=== PATIENT | male | born 1965 | race Two or more races ===

== ENCOUNTER 2017-04-17 16:47 | Day surgery (SDC) | payer OTHER ==
[2017-04-17] MEDS ORDERED: Lidocaine 1% 20 ML MDV INJECT ONE (17:18)
[2017-04-17] MEDS ORDERED: Lidocaine 1% 50 ML MDV INJECT ONE (17:23)
--- NOTE | 2017-04-17 17:23 | EDM.PDOC ---
ED HPI GENERAL MEDICAL PROBLEM - General Chief Complaint: Upper Extremity Injury/Pain Stated Complaint: LACERATION L 2 FINGERS Time Seen by Provider: 04/17/17 17:10 Source of Information: Reports: Patient History Limitations: Reports: No Limitations - History of Present Illness INITIAL COMMENTS - FREE TEXT/NARRATIVE: Patient is a 51-year-old male presents to the ED complaining of crush injury to the left index and thumb. 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 During this process one of the palms fell on the affected fingers. Bleeding is controlled. He has slight numbness to the left index finger. Minimal pain to the left thumb. No pain to the remainder fingers, hand, wrist, forearm, elbow. Tetanus status is questionable up to date. Patient has no additional past medical history and is currently taking no medications. Left 1-Thumb Pain Score (Numeric/FACES): 3 - Related Data Allergies Allergy/AdvReac Type Severity Reaction Status Date / Time No Known Allergies Allergy Verified 04/17/17 17:05 Home Meds: Home Meds . [No Known Home Meds] 04/17/17 [History] Review of Systems - Review of Systems Review Of Systems: ROS reveals no pertinent complaints other than HPI. ED EXAM, GENERAL - Physical Exam Exam: See Below Exam Limited By: No Limitations General Appearance: Alert, WD/WN, No Apparent Distress Ears: Hearing Grossly Normal Nose: Normal Inspection Throat/Mouth: Normal Voice, No Airway Compromise Neck: Normal Inspection, Supple Respiratory/Chest: No Respiratory Distress, No Accessory Muscle Use Cardiovascular: Normal Peripheral Pulses, Regular Rate, Rhythm Peripheral Pulses: 2+: Radial (L) Extremities: Other (Left index finger: Extensive crush injury to the medial lateral aspect of the left index finger. Full extension and flexion of the finger noted. Mild numbness present. Large laceration that starts at the proximal IP joint and wraps around the distal tip towards the other side of the IP joint. Bleeding controlled. Left thumb: Crush injury to the medial aspect of the distal phalanx. Minimal bleeding. Pain present. No sensory motor deficits noted. No pain noted to the remainder of the fingers and wrist forearm elbow.) Neurological: Alert, Oriented, Normal Cognition, No Motor/Sensory Deficits Psychiatric: Normal Affect, Normal Mood Skin Exam: Warm, Dry Course - Vital Signs Last Recorded V/S: Last Vital Signs Temp 97.7 F 04/17/17 17:06 Pulse 64 04/17/17 17:06 Resp 14 04/17/17 17:06 BP 162/104 H 04/17/17 17:06 Pulse Ox 98 04/17/17 17:06 - Orders/Labs/Meds Orders: Active Orders 24 hr Category Date Time Status Patient Status [ADT] Routine ADT 04/17/17 18:50 Active Peripheral IV Care [RC] . DIRECTED Care 04/17/17 18:23 Active NPO Now [Nothing per Oral Now Diet] [DIET] Diet 04/17/17 Breakfast Active Fingers Second Digit Lt F1 [CR] Stat Exams 04/17/17 17:17 Taken Fingers Thumb Lt FA [CR] Stat Exams 04/17/17 17:17 Taken Sodium Chloride 0.9% [Saline Flush] Med 04/17/17 18:23 Active 10 ml FLUSH ASDIRECTED PRN Peripheral IV Insertion Adult [OM.PC] Stat Oth 04/17/17 18:23 Ordered Schedule Procedure [COMM] Stat Oth 04/17/17 18:54 Ordered Medication Orders Sodium Chloride (Saline Flush) 10 ml FLUSH ASDIRECTED PRN PRN Reason: Keep Vein Open Meds: Medications Generic Name Dose Route Start Last Admin Trade Name Freq PRN Reason Stop Dose Admin Sodium Chloride 10 ml 04/17/17 18:23 Saline Flush FLUSH ASDIRECTED PRN Keep Vein Open Discontinued Medications Generic Name Dose Route Start Last Admin Trade Name Freq PRN Reason Stop Dose Admin Fentanyl Confirm 04/17/17 19:06 Sublimaze Administered 04/17/17 19:07 Dose 100 mcg .ROUTE .STK-MED ONE Cefazolin Sodium/Dextrose 2 gm 50 mls @ 100 mls/hr 04/17/17 18:24 04/17/17 18 :49 / Premix IV 04/17/17 18:53 100 mls/hr ONETIME ONE Administration Lidocaine HCl 20 ml 04/17/17 17:18 Xylocaine 1% INJECT 04/17/17 17:19 ONETIME ONE Lidocaine HCl 50 ml 04/17/17 17:23 Xylocaine 1% INJECT 04/17/17 17:24 ONETIME ONE Lidocaine HCl Confirm 04/17/17 17:27 Xylocaine 1% Administered 04/17/17 17:28 Dose 20 ml .ROUTE .STK-MED ONE Midazolam HCl Confirm 04/17/17 19:06 Versed 1 Mg/Ml Administered 04/17/17 19:07 Dose 2 mg .ROUTE .STK-MED ONE Propofol Confirm 04/17/17 19:06 Diprivan 20 Ml Administered 04/17/17 19:07 Dose 200 mg .ROUTE .STK-MED ONE - Re-Assessments/Exams Free Text/Narrative Re-Assessment/Exam: Patient has extensive crush injury to the left distal aspect the middle thumb, and lateral/medial aspect of the right index finger. Patient has full flexion and extension of the finger and thumb. Left index finger has minimal pain. Some slight numbness present. Thumb has some mild pain present. Tetanus status not up -to-date. Ordered x-ray of the left index and thumb. Adacel and lidocaine have been ordered. 04/17/17 18:[address] Wynn evaluate the wound. He believes taking the patient to surgery would be the best plan. Peripheral IV will be started with 2 grams of Ancef started. [address] Ramirez and has agreed to take patient to surgery. OR staff has been called in. Patient last ate 6 hours ago. Placed on NPO status. 04/17/[id number] Dr. Ramirez arrived to the E.D. and has evaluated the patient. 1914 Patient taken to surgery. Departure - Departure Time of Disposition: 19:15 Disposition: DC/Tfer to [facility] Condition: Good Clinical Impression: Crushing injury of left index finger Qualifiers: Encounter type: initial encounter Qualified Code(s): S67.191A - Crushing injury of left index finger, initial encounter Crushing injury of left thumb Qualifiers: Encounter type: initial encounter Qualified Code(s): S67.02XA - Crushing injury of left thumb, initial encounter Complicated laceration of finger Qualifiers: Encounter type: initial encounter Qualified Code(s): S61.219A - Laceration without foreign body of unspecified finger without damage to nail, initial encounter Laceration of left index finger Qualifiers: Encounter type: initial encounter Damage to nail status: with damage Foreign body presence: with foreign body Qualified Code(s): S61.321A - Laceration with foreign body of left index finger with damage to nail, initial encounter Laceration of left middle finger Qualifiers: Encounter type: initial encounter Damage to nail status: with damage Foreign body presence: with foreign body Qualified Code(s): S61.323A - Laceration with foreign body of left middle finger with damage to nail, initial encounter - Discharge Information - My Orders Last 24 Hours: My Active Orders 04/17/17 17:17 Fingers Second Digit Lt F1 [CR] Stat Fingers Thumb Lt FA [CR] Stat 04/17/17 18:23 Peripheral IV Care [RC] . DIRECTED Sodium Chloride 0.9% [Saline Flush] 10 ml FLUSH ASDIRECTED PRN Peripheral IV Insertion Adult [OM.PC] Stat 04/17/17 Breakfast NPO Now [Nothing per Oral Now Diet] [DIET] - Assessment/Plan Last 24 Hours: My Active Orders 04/17/17 17:17 Fingers Second Digit Lt F1 [CR] Stat Fingers Thumb Lt FA [CR] Stat 04/17/17 18:23 Peripheral IV Care [RC] . DIRECTED Sodium Chloride 0.9% [Saline Flush] 10 ml FLUSH ASDIRECTED PRN Peripheral IV Insertion Adult [OM.PC] Stat 04/17/17 Breakfast NPO Now [Nothing per Oral Now Diet] [DIET]
[2017-04-17] MEDS ORDERED: Lidocaine 1% 10 ML MDV ONE (17:27)
[2017-04-17] MEDS ORDERED: Sodium Chloride 0.9% 10 ML Syringe FLUSH PRN (18:23)
[2017-04-17] MEDS ORDERED: ceFAZolin 2 GM in Premix Bag 1 BAG IV ONE (18:24)
[2017-04-17] MEDS ORDERED: Midazolam 1 MG/ML 2 ML SDV ONE (19:06)
[2017-04-17] MEDS ORDERED: Propofol 200 MG/20 ML SDV ONE (19:06)
[2017-04-17] MEDS ORDERED: fentaNYL 100 MCG/2 ML SDV ONE (19:06)
[2017-04-17] MEDS ORDERED: cefTRIAXone 1 GM in Sodium Chloride 0.9% 100 ML IV ONE (19:12)
[2017-04-17] MEDS ORDERED: Ondansetron 4 MG/2 ML SDV IVPUSH PRN (19:12)
[2017-04-17] MEDS ORDERED: Acetaminophen/oxyCODONE 325-5 MG Tab PO PRN (19:12)
[2017-04-17] MEDS ORDERED: HYDROmorphone 0.5 MG/0.5 ML Syringe IVPUSH PRN ×2 (19:12→20:20)
[2017-04-17] MEDS ORDERED: Ketorolac 30 MG/ML SDV IVPUSH PRN (19:12)
[2017-04-17] MEDS ORDERED: Morphine 15 MG Tab.ER PO ONE (19:15)
[2017-04-17] MEDS ORDERED: Lidocaine 1% 30 ML SDV ONE (19:17)
[2017-04-17] MEDS ORDERED: Iodine/Sodium Iodide 2% Tincture 30 ML Bottle ONE (19:17)
--- NOTE | 2017-04-17 19:51 | PCM.PREANE ---
Preanesthetic Assessment - Procedure Proposed Procedure: I and D and closure of crush wounds to Left index finger and left thumb - Anesthesia/Transfusion/Family Hx Anesthesia History: No Prior Anesthesia Family History of Anesthesia Reaction: No Transfusion History: No Prior Transfusion(s) - Review of Systems General: No Symptoms Pulmonary: No Symptoms Cardiovascular: No Symptoms Gastrointestinal: No Symptoms Neurological: No Symptoms Other: Reports: None - Physical Assessment NPO Status Date: 04/17/17 NPO Status Time: 14:00 O2 Sat by Pulse Oximetry: 98 Respiratory Rate: 14 Vital Signs: Last Vital Signs Temp 36.5 C 04/17/17 17:06 Pulse 64 04/17/17 17:06 Resp 14 04/17/17 17:06 BP 162/104 H 04/17/17 17:06 Pulse Ox 98 04/17/17 17:06 Height: 1.83 m Weight: 90.718 kg ASA Class: 1E Mental Status: Alert & Oriented x3 Airway Class: Mallampati = 1 Dentition: Reports: Partial, Hindman(s), Bridge, Missing Tooth/Teeth Thyro-Mental Finger Breadths: 3 Mouth Opening Finger Breadths: 3 ROM/Head Extension: Full Lungs: Clear to Auscultation, Normal Respiratory Effort Cardiovascular: Regular Rate, Regular Rhythm, No Murmurs - Allergies Allergies/Adverse Reactions: Allergies Allergy/AdvReac Type Severity Reaction Status Date / Time No Known Allergies Allergy Verified 04/17/17 17:05 - Acknowledgements Anesthesia Type Planned: General Anesthesia Pt an Appropriate Candidate for the Planned Anesthesia: Yes Alternatives and Risks of Anesthesia Discussed w Pt/Guardian: Yes Pt/Guardian Understands and Agrees with Anesthesia Plan: Yes PreAnesthesia Questionnaire - Past Health History Medical/Surgical History: Denies Medical/Surgical History - SUBSTANCE USE Smoking Status *Q: Never Smoker Second Hand Smoke Exposure: No Days Per Week of Alcohol Use: 2 Number of Drinks Per Day: 3 Total Drinks Per Week: 6 Recreational Drug Use History: No - HOME MEDS Home Medications: Home Meds . [No Known Home Meds] 04/17/17 [History] - CURRENT (IN HOUSE) MEDS Current Meds: Current Medications Hydromorphone HCl (Dilaudid) 0.5 mg IVPUSH Q2H PRN PRN Reason: Pain (severe 7-10) Ketorolac Tromethamine (Toradol) 30 mg IVPUSH Q6H PRN PRN Reason: Pain (severe 7-10) Ondansetron HCl (Zofran) 4 mg IVPUSH Q4H PRN PRN Reason: Nausea/Vomiting Oxycodone/Acetaminophen (Percocet 325-5 Mg) 1 - 2 tab PO Q4H PRN PRN Reason: Pain (severe 7-10) Sodium Chloride (Saline Flush) 10 ml FLUSH ASDIRECTED PRN PRN Reason: Keep Vein Open Discontinued Medications Fentanyl (Sublimaze) Confirm Administered Dose 100 mcg .ROUTE .STK-MED ONE Stop: 04/17/17 19:07 Cefazolin Sodium/Dextrose 2 gm (/ Premix) 50 mls @ 100 mls/hr IV ONETIME ONE Stop: 04/17/17 18:53 Last Admin: 04/17/17 18:49 Dose: 100 mls/hr Ceftriaxone Sodium 1 gm/ (Sodium Chloride) 100 mls @ 200 mls/hr IV ONETIME ONE Stop: 04/17/17 19:41 Iodine (Iodine 2% Mild Tincture) Confirm Administered Dose 30 ml .ROUTE .STK- MED ONE Stop: 04/17/17 19:18 Lidocaine HCl (Xylocaine 1%) 20 ml INJECT ONETIME ONE Stop: 04/17/17 17:19 Last Admin: 04/17/17 19:14 Dose: Not Given Lidocaine HCl (Xylocaine 1%) 50 ml INJECT ONETIME ONE Stop: 04/17/17 17:24 Last Admin: 04/17/17 19:11 Dose: Not Given Lidocaine HCl (Xylocaine 1%) Confirm Administered Dose 20 ml .ROUTE .STK-MED ONE Stop: 04/17/17 17:28 Last Admin: 04/17/17 19:14 Dose: Not Given Lidocaine HCl (Xylocaine-Mpf 1%) Confirm Administered Dose 30 ml .ROUTE .STK- MED ONE Stop: 04/17/17 19:18 Midazolam HCl (Versed 1 Mg/Ml) Confirm Administered Dose 2 mg .ROUTE .STK-MED ONE Stop: 04/17/17 19:07 Morphine Sulfate (Ms Contin) 15 mg PO ONETIME ONE Stop: 04/17/17 19:16 Propofol (Diprivan 20 Ml) Confirm Administered Dose 200 mg .ROUTE .STK-MED ONE Stop: 04/17/17 19:07
[2017-04-17] MEDS ORDERED: fentaNYL 100 MCG/2 ML SDV IVPUSH PRN (20:20)
[2017-04-17] MEDS ORDERED: Ondansetron 4 MG/2 ML SDV ONE (20:40)
--- NOTE | 2017-04-17 20:59 | PCM.POSTAN ---
POST ANESTHESIA ASSESSMENT - MENTAL STATUS Mental Status: Oriented, Somnolent - VITAL SIGNS Pulse Rate: 71 SaO2: 97 Resp Rate: 8 Blood Pressure: 136/99 Temperature: 36.3 C - RESPIRATORY Respiratory Status: Respiratory Rate WNL, Airway Patent, O2 Saturation Stable - CARDIOVASCULAR CV Status: Pulse Rate WNL, Blood Pressure Stable - GASTROINTESTINAL GI Status: No Symptoms - PAIN Pain Score: 0 - POST OP HYDRATION Hydration Status: Adequate & Stable
--- NOTE | 2017-04-17 21:09 | PCM48HPAN ---
Post Anesthesia Note - EVALUATION WITHIN 48HRS OF ANESTHETIC Vital Signs in Normal Range: Yes Patient Participated in Evaluation: Yes Respiratory Function Stable: Yes Airway Patent: Yes Cardiovascular Function Stable: Yes Hydration Status Stable: Yes Pain Control Satisfactory: Yes Nausea and Vomiting Control Satisfactory: Yes Mental Status Recovered: Yes
--- NOTE | 2017-04-17 22:20 | HP ---
DATE OF ADMISSION: 04/17/2017 HISTORY OF PRESENT ILLNESS: This is the first orthopedic outpatient admission for surgery for this 51-year- old male, who is being admitted from the emergency room for outpatient surgical irrigation and debridement of a severe crush injury to the left thumb and index finger. The patient suffered this injury while working on an oil well around 3:20 this afternoon. The patient was brought into the emergency room, evaluated, and after evaluation and the severe soft tissue damage to both the index and thumb, the patient is being scheduled for the surgical treatment in the operating theater. The patient also notes no other injuries. Did not hit his head. Notes no upper extremity injuries. Has been stable since he has presented to the emergency room, and the patient also after explanation of the surgery and the postoperative complications that may occur especially the skin loss due to the tissue injury from the crush that may require future reconstruction and possible grafting, he understands that and has consented to the surgery. ALLERGIES: No known drug allergy. PAST MEDICAL HISTORY: He has been a healthy 51-year-old male. CURRENT MEDICATIONS: Currently, on no medications. PAST SURGICAL HISTORY: Negative. He has no previous anesthesia history. He has a negative bleeding history, negative blood clot history. SOCIAL HISTORY: The patient is a nonsmoker and alcohol is only occasional. REVIEW OF SYSTEMS: HEAD, EYES, EARS, NOSE, THROAT: The patient notes no head colds or chest colds. HEART: Normal. CHEST: He has had no shortness of breath or chest pain. The patient notes no shortness of breath or breathing difficulty or history of asthma or pneumonia. ABDOMEN: No previous history of infection. : The patient notes no previous urinary tract infection or prostate problems. MUSCULOSKELETAL: The patient notes no other problems other than the injury to his left hand. PHYSICAL EXAMINATION: GENERAL: The patient is a well-developed well-nourished 51-year-old male, in moderate distress. HEAD, EYES, EARS, NOSE, AND THROAT: Normocephalic. NECK: Supple. CHEST: Clear. COR: Regular rate. ABDOMEN: Soft. : Intact. EXTREMITIES: Examination of the left hand reveals a crush laceration to the ulnar volar side of the thumb. The laceration itself is approximately 4 cm and approximately 1.5 cm wide and deep down to the IP joint with joint involvement. The surrounding tissues are severely contaminated and very jagged as a result of the crush and pinching affect. Physical examination of the left index finger reveals a pinch type crush to the radial aspect of the left index finger beginning at the tip of the finger extending down to the PIP joint. This was approximately 1 cm wide. The tissue that was pinched is blanched, but the rest of the tissue on both sides shows intact circulation. There is laceration and this is essentially a very elongated type flap with laceration dorsally and volarly. Total measurement for the laceration of the left index finger extends to approximately 9 cm from [address] to the other. RADIOGRAPHIC STUDIES: X-rays showed positive tuft changes as a result of the crush injury showing partial fracturing of the tuft of the end of the distal phalanx of both the index and thumb area. Rest of the bony structure was intact. ASSESSMENT: 1. Severe crush injury, left thumb with skin tissue loss and severe contamination and interphalangeal joint penetration. 2. Severe laceration and crush injury to the left index finger radial aspect. PLAN: Will be for the patient to undergo irrigation and debridement of the wounds, repair, and then the patient will be started on outpatient antibiotic therapy and have followup evaluation after the surgery at the orthopedic office. LESLIE /[id number]
[2017-04-17 22:22] VITALS: BP 141/84
--- NOTE | 2017-04-18 08:01 | CR ---
Left thumb: Four views of the left thumb were obtained. Comparison: No previous study. Soft tissue injury is seen. Multiple small radiopacities are seen and please correlate if these are outside the patient. No acute fracture or other bony abnormality is seen. Impression: 1. Soft tissue injury. Multiple foreign bodies as noted above. 2. No acute bony abnormality is identified. Diagnostic code #3
--- NOTE | 2017-04-18 08:01 | CR ---
Left second finger: Four views of the left second finger were obtained. Soft tissue injury is identified. Small radiopacities are seen, please correlate if these are outside the patient. No acute fracture or other bony abnormality is identified. Impression: 1. Soft tissue injury. Radiopacities as noted above. 2. No acute bony abnormality is identified. Diagnostic code #3
--- NOTE | 2017-04-18 08:25 | CONS ---
CONSULTING PHYSICIAN: Nic Ramirez MD DATE OF CONSULTATION: 04/17/2017 HISTORY: Orthopedic consultation called for by emergency room physician for evaluation of crush injury to the left thumb and index finger. The patient was working in an oil well when he suffered crushing injury from the equipment to the thumb index finger region causing significant severe soft tissue injury along with lacerations to both the index and thumb area. Also, the wounds were significantly contaminated as a result of the equipment and the material that caused the injury. The patient notes no other injuries other than to the hand. He has positive numbness around the thumb area where the injury occurred and also the index finger. He notes that his left upper extremity, wrist, elbow and shoulder are okay. He did not suffer any falls or head injury. PHYSICAL EXAMINATION: GENERAL: Reveals a 51-year-old male, in moderate distress. HEAD, EYES, EARS, NOSE, AND THROAT: Normocephalic. NECK: Supple. CHEST: Clear. COR: Regular rate. ABDOMEN: Soft. : Intact. EXTREMITIES: Examination of the left hand reveals a crush injury to the ulnar aspect of the left thumb with open laceration. The tissue is jagged with severe contamination in the wound themselves extending from the tip of the thumb on the ulnar volar side extending down to the IP joint and proximal phalanx. This is a deep tissue injury with joint involvement on the thumb. The patient has a positive motor with flexion and extension. The left index finger evaluation shows a laceration along the radial aspect of the left index finger secondary to pinching of the equipment on the finger itself. This caused a discoloration and white look to the tissues themselves. There is laceration extending from the PIP joint down to the nail area along the radial aspect, both on the volar and dorsal side. The patient has positive flexion extension of the PIP joint and DIP joint. He has positive decreased sensation to the tip. The wrist examination was intact. The x-rays were reviewed. This shows some soft bony tissue changes on the tip of the distal phalanx of the index finger and also the thumb. No clear major fracture through the distal phalanx or proximal middle phalanx were noticed. IMPRESSION: Crush injury, soft tissue laceration, left thumb and left index finger. PLAN: The patient to undergo irrigation, debridement, and repair of the tissues in the surgical theater and postoperatively the patient will be stabilized. The procedure was outlined to the patient along with the chances that the skin that was pinched along the radial aspect of the left index finger may not survive. This will be followed over the course of the next week, in which case, this may require a special type of graft for this type of problem. The patient understands this and has consented to surgery in the emergency area. LESLIE /[id number]
--- NOTE | 2017-04-18 08:28 | OR ---
DATE OF OPERATION: 04/17/2017 SURGEON: Nic Ramirez MD PREOPERATIVE DIAGNOSIS: 1. Severe crush injury, skin tissue loss ulnar aspect, left thumb, area of tissue loss and crush 4 cm x 2 cm. 2. Crush injury, lacerations and contamination index finger, left hand with small skin tissue loss, extent of lacerations 9 cm. POSTOPERATIVE DIAGNOSIS: 1. Severe crush injury, skin tissue loss ulnar aspect, left thumb, area of tissue loss and crush 4 cm x 2 cm. 2. Crush injury, lacerations and contamination index finger, left hand with small skin tissue loss, extent of lacerations 9 cm. ANESTHESIA: General. OPERATION PERFORMED: 1. Irrigation and debridement of skin tissue loss site ulnar aspect, left thumb measuring for 4 cm x 2 cm. 2. Irrigation and debridement of lacerations both the volar dorsal aspect, index finger, left hand totaling 9 cm. DESCRIPTION OF PROCEDURE: The patient was taken to the operating room in supine position, where he was placed under a general anesthesia. The left arm and hand were prepped and draped in standard fashion. Operation began with initial Pulsavac skin wash of the wounds which were severely contaminated of both the thumb and index finger. The left thumb evaluation found this 4 x 2 cm area of complete skin loss had very good soft tissue and fatty type tissue. This area was thoroughly debrided removing all skin, any dirty type tissues, and any type of fat that was crushed leaving a nice base in the area for later wet-to-dry dressing changes and secondary wound healing. Once that was completed, the operation proceeded to the index finger where there were extensive lacerations. Major laceration involving the ulnar aspect of the ring finger. Laceration extending approximately 1 cm proximal going distal to the tip of the left index finger with deep penetration to the skin and palpable joint area on the PIP joint. There were also multiple lacerations along the dorsal aspect radial aspect of the index finger beginning at the PIP joint and extending down to the nail bed. These areas were debrided and thoroughly irrigated and removal of as much type tissue as possible. Once that was completed, the operation then proceeded with repair using 5-0 Prolene closing the areas leaving spaces for drainage on the finger itself. Once all the skin area was closed on the index finger which totaled approximately 9.5 cm, the operation proceeded with standard dressings being applied to the index finger using Xeroform and gauze and Paxton wrap. The thumb was treated with Xeroform dressing along with Paxton wrap and then the patient's hand was placed in a splint using a partial thumb spica and the splint extending to the tip of the fingers for control of any motion and to improve the circulation. Once all the dressings were in place and splint applied, the operation proceeded with dropping of tourniquet. The circulation returned very well to the middle finger and ring finger and small finger. The thumb and index finger were completely wrapped in the dressing area. Once the splint had hardened and the tourniquet dropped, the operation proceeded with standard recovery for the patient. He tolerated the procedure well, left the operating room in stable condition to his room for recovery. ESTIMATED BLOOD LOSS: MMODAL /[id number]
== END 2017-04-17 22:00 | disposition home or self-care (01) ==
LOC: JD.ED 16:47 → JD.SDS 18:48
PROVIDERS: ATTEND Specialist
PROC: 0HQGXZZ Repair Left Hand Skin, External Approach (ICD-10-PCS; principal; 2017-04-17)
PROC: 0JBK0ZZ Excision of Left Hand Subcutaneous Tissue and Fascia, Open Approach (ICD-10-PCS; 2017-04-17)
DX: S67.02XA Crushing injury of left thumb, initial encounter (principal); S67.191A Crushing injury of left index finger, initial encounter; S61.211A Laceration without foreign body of left index finger without damage to nail, initial encounter; W31.89XA Contact with other specified machinery, initial encounter
CPT/HCPCS: 11042; 12004; 73140; 96374; 99284; A9270; J0690; J0696; J2250; J2405; J3010; J7030; 00400; J2704